=== PATIENT | male | born 1960 | race Caucasian/White ===

== ENCOUNTER 2020-04-08 02:08 | Outpatient (CLI) | payer OTHER, SELFPAY ==
[2020-04-08 22:41] LABS: SARS-CoV-2 RNA PCR Positive
== END 2020-04-08 02:09 | disposition home or self-care (01) ==
LOC: ANHCOVIDDT 02:08
PROVIDERS: PCP Family Medicine; Visit Provider Surgery
DX: Z01.812 Encounter for preprocedural laboratory examination (principal); U07.1 COVID-19
CPT/HCPCS: 87635; C9803; U0003

== ENCOUNTER 2020-04-08 07:55 | Outpatient (CLI) | payer OTHER, SELFPAY | END 2020-04-08 07:56 | disposition home or self-care (01) | LOC: ANHSURGERY 07:58 | PROVIDERS: PCP Family Medicine; Visit Provider Surgery | DX: Z01.812 Encounter for preprocedural laboratory examination (principal); K46.9 Unspecified abdominal hernia without obstruction or gangrene | CPT/HCPCS: 36415; 86850; 86900; 86901 ==

== ENCOUNTER 2020-04-10 00:15 | Day surgery (SDC) | payer OTHER, SELFPAY ==
[2020-03-31 16:51] VITALS: BMI 28.1
--- NOTE | 2020-04-03 10:47 | PC.NURSE ---
PT STATES NO CHANGE IN HEALTH HX SINCE LAST INTERVIEW ON 03/31/20
[2020-04-10] VITALS (9 sets, daily range): BP systolic 102–126; BP diastolic 57–79; PULSE 53–83; RESP 12–16; TEMP 36.1–36.2; O2SAT 95–100
[2020-04-10] MEDS: LACTATED RINGERS 1,000 ML 30 ML IV CONT ×4 (12:00→16:14)
[2020-04-10] MEDS: ACETAMINOPHEN 500 MG TABLET 1000 MG PO (12:07)
[2020-04-10] MEDS: KETOROLAC 15 MG/ML VIAL (*BKC) IV PUSH (12:09)
--- NOTE | 2020-04-10 13:28 | WPDANESEPPF ---
Anes - Initial Pre Proc Eval Procedure: Operation Date: 04/10/20 13:30 Proposed Procedures p Robotic Laparoscopic Right Inguinal Hernia Repair With Mesh - Sandra Rodrigues MD Date/Time: 04/10/20 13:28 Surgeon: Sandra Rodrigues MD Pre Op Diagnosis: Right Inguinal Hernia Patient Data Age: 59 Gender: M Height: 5 ft 9 in Weight: 89.9 kg Last Vital Signs Temp 97 F L 04/10/20 11:45 Pulse 56 L 04/10/20 11:45 Resp 16 04/10/20 11:45 BP 126/79 04/10/20 11:45 Pulse Ox 100 04/10/20 11:45 Allergies Allergy/AdvReac Type Severity Reaction Status Date / Time No Known Allergies Allergy Mild Verified 04/10/20 11:38 Home Medications Medication Instructions Recorded Confirmed Type No Home Medications 04/03/20 04/10/20 History Patient hx anesthesia problems: post op nausea/vomiting Family hx anesthesia problems: none PMFSH Past Medical History Medical History (Updated 04/10/20 @ 13:26 by Clark Velarde MD) H/O colon cancer, stage I had 16 years ago; chemotherapy Social History Social History Smoking status: Never smoker Living arrangements: with family Spiritual care concerns: No Anes - Eval Final PreProcedure Day of Procedure 04/10/20 13:28 Patient weight: normal Heart: regular rate and rhythm Lungs: clear to auscultation Airway: Mallampati scale class II Neurological: alert and oriented Last oral intake: >/= 8 hours ASA classification: II Emergent: no Anesthetic plan: proceed (Covid test positive now; had Covid one month ago with no symptoms except loss of taste) Anesthesia type and monitoring: general ETT and standard monitoring Informed Consent: The patient's anesthetic plan and its attendant risks and benefits were discussed with the patient/family/POA. Questions were solicited and answers provided to the satisfaction of the patient/family/POA.
[2020-04-10] MEDS: SCOPOLAMINE 1.5 MG PATCH TRANSDERM (13:29)
--- NOTE | 2020-04-10 13:33 | PM.IMHP ---
H&P: HPI History of Present Illness Date/Time: 04/10/20 13:33 Pt is a 59 y/o M presenting c R groin pain over last few mos. Pt reports occasional bulging assoc c pain. Pt reports sx much more prominent c straining, activity. Pt reports over last mo some mild sx on L as well. Pt denies any obstructive sx. Chief Complaint: R groin pain Narrative: Poonam Almeida is a 59 year old male Review of Systems Constitutional: Constitutional: Denies anorexia, Denies chills, Denies difficulty sleeping, Denies fatigue, Denies fever(s), Denies headache(s), Denies weakness, Denies weight gain and Denies weight loss Eyes: Eyes: Reports no additional eye complaints ENT: Reports system reviewed and no additional complaints, except as documented Cardiovascular: Cardiovascular: Reports no additional cardiovascular complaints Respiratory: Respiratory: Reports no additional respiratory complaints Gastrointestinal: Gastrointestinal: Reports no additional gastrointestinal complaints Genitourinary: Genitourinary: Reports no additional male genitourinary complaints Musculoskeletal: Musculoskeletal: Reports no additional musculoskeletal complaints Integumentary/Breasts: Skin/Breast: Reports system reviewed and no additional complaints, except as docu Neurologic: Reports system reviewed and no additional complaints, except as documented Psychiatric: Psychiatric: Reports no additional psychiatric complaints Endocrine: Endocrine: Reports no additional endocrine complaints Hematologic/Lymphatic: Hematologic/Lymphatic: Reports no additional hematologic/lymphatic complaints Allergic/Immunologic: Allergic/Immunologic: Reports no additional allergic/immunologic complaints PMFSH Past Medical History Medical History H/O colon cancer, stage I had 16 years ago; chemotherapy Social History Social History Smoking status: Never smoker Living arrangements: with family Spiritual care concerns: No Comments surgical history - R colectomy FH - denies any hernias, collagen defects Meds Home Medications and Allergies Home Medications Medication Instructions Recorded Confirmed Type No Home Medications 04/03/20 04/10/20 History Allergies Allergy/AdvReac Type Severity Reaction Status Date / Time No Known Allergies Allergy Mild Verified 04/10/20 11:38 Vital Signs Vital Signs - 24 hr 04/10/20 11:45 Temperature 36.1 C L Pulse Rate 56 L Respiratory Rate 16 Blood Pressure 126/79 Pulse Oximetry 100 Exam Const: General: cooperative, comfortable and no acute distress Orientation/consciousness: patient oriented x3 Limitations: no limitations HENMT: Head: normal to inspection, normocephalic and atraumatic Ears: hearing grossly normal bilaterally General nose exam: Normal external nose present Face and sinus: normal facial exam Mouth: Yes Normal oral and palatal mucosa present and Yes moist mucous membranes Eyes: General: appearance normal, both eyes and all related structures Pupils: Equal, round and reactive pupils present EOM: EOMs intact bilaterally Neck: Neck: normal visual inspection, full ROM and no lymphadenopathy Chest: Chest palpation & inspection: normal inspection of the chest Resp: Effort & Inspection: normal respiratory effort Auscultation: clear to auscultation bilaterally Cardio: Jugular venous distension: no JVD Rate: regular rate Rhythm: regular rhythm GI: Inspection: normal to inspection GI Palp: No abdominal tenderness, Yes Soft to palpation, No Tenderness to palpation present (GI), No Guarding due to palpation present (GI) and Yes Hernia present Other: RIH - moderate, reducible L groin - no obvious defect, weakness noted Skin: General skin exam: normal color and no rashes or lesions noted Neuro: General: oriented to person, oriented to place, oriented to time and CN's II-XI intact bilate
--- NOTE | 2020-04-10 13:39 | WPDHPUPDATE1 ---
History and Physical Update Update Date/Time: 04/10/20 13:39 History and Physical has been reviewed, including an updated exam of the patient. There are NO changes in the patient's condition. Risks, benefits, and alternatives have been discussed and questions answered. Patient agrees to proceed with procedure.
[2020-04-10] MEDS: ceFAZolin 2 GM/D5W 50 ML 2 GM/50 ML BAG IVPB (13:43)
[2020-04-10] MEDS: BUPIVACAINE/EPINEPHRINE 0.25% 10 ML VIAL 30 ML INFILTRATE (14:30)
--- NOTE | 2020-04-10 15:49 | PM.PROC ---
Procedure Note - Detailed Date of procedure: 04/10/20 Pre-op diagnosis: Right Inguinal Hernia Post-op diagnosis: other ( bilateral indirect inguinal hernia) Procedure performed: robotic assisted bilateral inguinal hernia repair with 15 x 10 cm Progrip mesh bilaterally Description of procedure: Patient was brought into the operating room and placed in the supine position. After adequate induction of general anesthesia, the patient was prepped and draped in normal sterile fashion. A time-out was then done to verify the patient's identity, as well as the procedure being performed. Began by making a 8 mm incision in the supraumbilical region, a Veress needle was then placed into the peritoneal cavity. CO2 gas was then insufflated and after adequate pneumoperitoneum was achieved, the Veress needle was removed. I then placed an 8 mm trocar through this incision. I then placed the endoscope through this trocar site and under direct visualization placed 2 further 8 mm ports in the right and left mid abdomen. The [employer] robot was then docked to the 3 trocar sites. I then scrubbed out and went to the robotic console. Upon examining the pelvis, it was noted that the patient had bilateral inguinal hernias, right greater than left. I began by making a preperitoneal flap approximately 6 cm superior to the defect on the right. This flap was carried medially past the umbilical ligaments and laterally to the transversalis. I then began dissection of my medial compartment taking this down to the pubic tubercle. I then began the lateral dissection taking this down to the transversalis fascia. Once these compartments were achieved, I began dissection around the cord structures. It was noted at this point that the patient had a indirect hernia. Patient also had a lipoma the cord. Using careful dissection, was able to reduce the lipoma cord as well separate the indirect hernia off the cord structures. Once this was adequately done, I went ahead and placed a 15 x 10 piece of [employer] mesh into the abdominal cavity. The mesh was carefully positioned, centering the center of the mesh over the indirect defect. Once this was done, was very satisfied with our tension-free repair. Repeating the procedure on the left, I began by making a preperitoneal flap approximately 6 cm superior to the defect on the left. This flap was carried medially past the umbilical ligaments and laterally to the transversalis. I then began dissection of my medial compartment taking this down to the pubic tubercle. I was able to connect this to the repair on the right side. I then began the lateral dissection taking this down to the transversalis fascia. Once these compartments were achieved, I began dissection around the cord structures. It was noted at this point that the patient had a indirect hernia. Patient also had a lipoma the cord. Using careful dissection, was able to reduce the lipoma cord as well separate the indirect hernia off the cord structures. Once this was adequately done, I went ahead and placed a 15 x 10 piece of Pro [employer] Inspector mesh into the abdominal cavity. The mesh was carefully positioned, centering the center of the mesh over the indirect defect. Once this was done, was very satisfied with our tension-free repair. I then closed the peritoneal flap with a running 2.0 V Lock suture on both sides. The abdomen was then desufflated, and all ports were removed. All incisions were then closed with the 4.0 monocryl suture. Dermabond was placed on each wound. The patient tolerated the procedure well, was extubated in the operating room postoperatively, and will now be transferred to the recovery room in stable condition. Implants: 15 x 10 progrip mesh x 2 Anesthesia: YUE Surgeon: Sandra Rodrigues MD Estimated blood loss (mL): 10 Drains: No Packing: No Pathology: none sent Complications: No immediate complications Condition: stable Disposition: PACU Findings: indirect bilateral inguinal he
[2020-04-10] MEDS: ONDANSETRON INJ 4 MG/2 ML VIAL IV PUSH (17:19)
== END 2020-04-10 18:31 | disposition home or self-care (01) ==
PROVIDERS: PCP Family Medicine; Visit Provider Surgery
PROC: 8E0Y4CZ Robotic Assisted Procedure of Lower Extremity, Percutaneous Endoscopic Approach (ICD-10-PCS; CPT 49650; principal; 2020-04-10 13:30)
DX: K40.90 Unilateral inguinal hernia, without obstruction or gangrene, not specified as recurrent (principal)
CPT/HCPCS: 49650; S2900; 36415; 86850; 86900; 86901; 87635; A9270; C1781; C9803; J0690; J1100; J1885; J2250; J2405; J2704; J2710; J3010; J7120; U0003

== ENCOUNTER → 2020-12-19 08:30 | Outpatient (CLI) | payer OTHER, SELFPAY ==
[2020-12-19 18:23] LABS: SARS-CoV-2 RNA PCR Negative
== END ==
PROVIDERS: PCP Surgery; Visit Provider Surgery
DX: Z20.822 Contact with and (suspected) exposure to COVID-19 (principal)
CPT/HCPCS: C9803; U0003; U0005

== ENCOUNTER 2023-11-21 10:09 | Outpatient (CLI) | payer BC, SELFPAY ==
[2023-11-21 17:11] LABS: Kit Draw Collected
== END 2023-11-21 10:10 | disposition home or self-care (01) ==
LOC: ANHGOSHLAB 10:12
PROVIDERS: PCP Student in an Organized Health Care Education/Training Program; Visit Provider Student in an Organized Health Care Education/Training Program
DX: E86.0 Dehydration (principal)
CPT/HCPCS: 36415